=== PATIENT | female | born 1950 | race African-American/Black ===

== ENCOUNTER 2024-04-15 10:11 | Emergency (ER) | payer MEDICARE, OTHER ==
[~2024-04-15] VITALS: Ht 170.2 cm; Wt 113.0 kg
[2024-04-15 10:22] VITALS: O2SAT 99
[2024-04-15 10:30] VITALS: BP 169/71; PULSE 79; RESP 16; TEMP 36.9; O2SAT 98
[2024-04-15 10:58] LABS: BASOPHILS % 0.6 % (0.0-2.0); EOSINOPHILS % 0.2 % (0.0-5.0); HEMATOCRIT. 43.5 % (36.0-48.0); HEMOGLOBIN. 14.6 g/dL (12.0-16.0); MEAN CORPUSCULAR HEMOGLOBIN 30.3 pg (28.0-32.0); MEAN CORPUSCULAR HGB CONC 33.5 g/dL (31.0-37.0); MEAN CORPUSCULAR VOLUME 90.6 fL (81.0-99.0); MEAN PLATELET VOLUME 9.2 fl (7.4-10.4); MONOCYTES % 3.9 % (2.0-8.0); NEUTROPHILS % 87.3 % (40.0-76.0); PLATELET 240 x1000/uL (130-400); RED BLOOD CELL COUNT 4.81 mill/uL (4.2-5.4); RED CELL DISTRIBUTION WIDTH 13.9 % (11.6-14.6); WHITE BLOOD COUNT 9.9 x1000/uL (4.5-11.0)
[2024-04-15 11:05] LABS: CHLORIDE 104 mEq/L (98-107); POTASSIUM 3.6 mEq/L (3.5-5.1); SODIUM 143 mEq/L (136-145)
[2024-04-15 11:06] LABS: CARBON DIOXIDE 31 mEq/L (21-32)
[2024-04-15 11:11] LABS: GLUCOSE 113 mg/dL (70-105); UREA NITROGEN BLOOD 12 mg/dL (9-23)
[2024-04-15 11:47] LABS: TROPONIN I HIGH SENSITIVITY 5 ng/L (3.0-34)
[2024-04-15] MEDS ORDERED: IOHEXOL-350 100 ML BOTTLE ONE (16:27)
== END 2024-04-15 16:26 | disposition home or self-care (01) ==
LOC: ER 10:11
DX: R07.89 Other chest pain (principal); M79.601 Pain in right arm; R10.9 Unspecified abdominal pain; I10 Essential (primary) hypertension; Z88.5 Allergy status to narcotic agent; Z90.49 Acquired absence of other specified parts of digestive tract
CPT/HCPCS: 99285; 71275; 71045; 80048; 85025; 85379; 84484; 36415; 93005; Q9967

== ENCOUNTER 2024-04-15 17:08 | Emergency (ER) | payer MEDICARE ==
[~2024-04-15] VITALS: Ht 170.2 cm; Wt 113.0 kg
[2024-04-15 17:16] VITALS: BP_SYST 149; TEMP 36.9; O2SAT 100
[2024-04-15 17:18] VITALS: PULSE 69; RESP 18; O2SAT 99
[2024-04-15 19:38] LABS: BASOPHILS % 0.7 % (0.0-2.0); EOSINOPHILS % 0.3 % (0.0-5.0); HEMATOCRIT. 45.3 % (36.0-48.0); HEMOGLOBIN. 15.2 g/dL (12.0-16.0); LYMPHOCYTES % 7.1 % (20.0-50.0); MEAN CORPUSCULAR HEMOGLOBIN 30.7 pg (28.0-32.0); MEAN CORPUSCULAR HGB CONC 33.7 g/dL (31.0-37.0); MONOCYTES % 3.7 % (2.0-8.0); NEUTROPHILS % 88.2 % (40.0-76.0); RED BLOOD CELL COUNT 4.98 mill/uL (4.2-5.4); WHITE BLOOD COUNT 14.2 x1000/uL (4.5-11.0)
[2024-04-15 19:43] LABS: CHLORIDE 103 mEq/L (98-107); POTASSIUM 3.1 mEq/L (3.5-5.1); SODIUM 141 mEq/L (136-145)
[2024-04-15 19:44] LABS: CALCIUM 9.9 mg/dL (8.7-10.4); CARBON DIOXIDE 27 mEq/L (21-32)
[2024-04-15 19:47] LABS: DIFFERENTIAL COMMENT 1
[2024-04-15 19:49] LABS: GLUCOSE 105 mg/dL (70-105); UREA NITROGEN BLOOD 9 mg/dL (9-23)
[2024-04-15 19:50] LABS: TROPONIN I HIGH SENSITIVITY 7 ng/L (3.0-34)
[2024-04-15 19:51] LABS: ALANINE AMINOTRANSFERASE 133 IU/L (10-49); ALBUMIN 4.3 g/dL (3.2-4.8); ASPARTATE AMINOTRANSFERASE 165 IU/L (<34); BILIRUBIN DIRECT 0.3 mg/dL (<=3.0)
[2024-04-15 19:52] LABS: BILIRUBIN TOTAL 0.9 mg/dL (0.1-1.0); PROTEIN TOTAL 8.1 g/dL (6.0-8.3)
[2024-04-15 21:33] LABS: MEAN PLATELET VOLUME 9.5 fl (7.4-10.4); PLATELET 224 x1000/uL (130-400)
[2024-04-15] MEDS ORDERED: IOHEXOL-350 100 ML BOTTLE ONE (23:00)
== END 2024-04-15 21:35 | disposition home or self-care (01) ==
LOC: ER 17:08
DX: R10.84 Generalized abdominal pain (principal); R74.01 Elevation of levels of liver transaminase levels; I10 Essential (primary) hypertension; Z88.5 Allergy status to narcotic agent; Z90.49 Acquired absence of other specified parts of digestive tract
CPT/HCPCS: 99284; 74176; 80076; 80048; 83690; 85025; 84484; 36415; Q9967